=== PATIENT | male | born 1950 | race Caucasian/White ===

== ENCOUNTER 2019-07-11 22:21 | Emergency (ER) | payer MEDICARE, OTHER ==
[~2019-07-11] VITALS: Ht 188 cm; Wt 90.0 kg
[~2019-07-11 22:21] MED LIST: ASPIRIN LOW DOS81 M2 PO; LIPITOR40 MG PO; LISINOPRIL20 MG PO; SIMVASTATIN40 MG PO; ZPAK PO
[2019-07-11 23:36] LABS: HEMATOCRIT 41.7 % (39.0-50.0); HEMOGLOBIN 14.5 g/dl (14.0-18.0); IMMATURE GRANULOCYTES 0.2 % (0.0-5.0); MEAN CELL VOLUME 97.7 fL CALC (80.0-100.0); MEAN CORPUSCULAR HGB CONC 34.8 g/L CALC (32.0-36.0); NEUT# 5.23 thou/uL (1.82-7.42); RED BLOOD COUNT 4.27 mill/uL (4.70-6.10); RED CELL DISTRI WIDTH 12.9 % (11.5-15.5)
[2019-07-11 23:37] LABS: URINE BILIRUBIN - DIPSTICK NEGATIVE (NEGATIVE); URINE BLOOD DIPSTICK NEGATIVE (NEGATIVE); URINE COLOR YELLOW; URINE GLUCOSE - DIPSTICK NEGATIVE (NEGATIVE); URINE KETONE NEGATIVE (NEGATIVE); URINE LEUK ESTERASE NEGATIVE (NEGATIVE); URINE NITRITE - DIPSTICK NEGATIVE (Negative); URINE PH 5.5 (4.5-8.0); URINE PROTEIN - DIPSTICK NEGATIVE (NEG-TRACE); URINE SPECIFIC GRAVITY <=1.005; URINE UROBILINOGEN - DIPSTICK 0.2 E.U./dL (0.2)
[2019-07-11 23:46] LABS: ALBUMIN 4.4 g/dL (3.2-5.0); ALKALINE PHOSPHATASE 79 u/l (38-126); ANION GAP 13 (6-22 (CALC)); BUN 19 mg/dL (8-23); BUN/CREATININE RATIO 24 (12-20 (CALC)); CARBON DIOXIDE 24 mmol/l (22-30); CHLORIDE 105 mmol/l (95-108); CREATININE 0.8 mg/dL (0.7-1.3); GFR > 60 ML/MIN (>=60 (CALC)); GFR FOR AFR.AMER. > 60 ML/MIN (>=60 (CALC)); SGOT/AST 23 u/l (19-48); SODIUM 139 mmol/l (137-146); TOTAL PROTEIN 7.3 g/dL (6.3-8.2)
[2019-07-11 23:50] LABS: BILIRUBIN, TOTAL 0.2 mg/dL (0.0-1.4)
[2019-07-12 00:10] VITALS: BP 161/79
== END 2019-07-12 00:30 | disposition home or self-care (01) ==
LOC: ED 22:21
PROVIDERS: Family Medicine
DX: I10 Essential (primary) hypertension (principal); F17.210 Nicotine dependence, cigarettes, uncomplicated

== ENCOUNTER 2024-07-11 21:00 | Emergency (ER) | payer MEDICARE, OTHER ==
[~2024-07-11] VITALS: Ht 188 cm; Wt 75.0 kg
[2024-07-11] VITALS (12 sets, daily range): BP systolic 103–133; BP diastolic 50–69
[~2024-07-11 21:00] MED LIST changes: +ALBUTEROL SUL0.083 % IN; +AMLODIPINE BESY10 MG PO; +ANORO ELLIPTA 61 AER IN; +CRESTOR20 MG PO; +DOXYCYC MONO100 M2; +DOXYCYCLINE100 MG PO; +LISINOPRIL40 MG PO; +PREDNISONE10 MG PO
[2024-07-11] MEDS ORDERED: ALBUTEROL SULFATE 2.5 MG VIAL NEB ONE (21:15)
[2024-07-11] MEDS ORDERED: IPRATROPIUM-Albuterol 0.5MG-2.5MG/3 ML NEB ONE (21:15)
[2024-07-11 21:42] LABS: BASO% 0.3 % (0-3); EOS% 1.9 % (0-8); HEMATOCRIT 39.3 % (39.0-50.0); HEMOGLOBIN 13.1 g/dl (14.0-18.0); IMMATURE GRANULOCYTES 0.5 % (0.0-5.0); MEAN CELL VOLUME 105.6 fL CALC (80.0-100.0); MEAN CORPUSCULAR HGB 35.2 pG CALC (26.0-32.0); MEAN CORPUSCULAR HGB CONC 33.3 g/dL CAL (32.0-36.0); MONO% 13.2 % (2-13); NEUT# 7.7 thou/uL (1.82-7.42); NEUT% 70.1 % (42-76); RED BLOOD COUNT 3.72 mill/uL (4.70-6.10); RED CELL DISTRI WIDTH 13.1 % (11.5-15.5)
[2024-07-11 21:51] LABS: BILIRUBIN, TOTAL 0.3 mg/dL (0.2-1.3); CREATININE 0.7 mg/dL (0.7-1.3); TOTAL PROTEIN 6.1 g/dL (6.3-8.2)
[2024-07-11 21:52] LABS: ALBUMIN 3.6 g/dL (3.2-5.0); POTASSIUM 3.9 mmol/l (3.5-5.1)
[2024-07-11] MEDS ORDERED: predniSONE 20 MG/TAB PO ONE (22:40)
[2024-07-11] MEDS ORDERED: PREDNISONE20 MG PO (23:39)
[2024-07-12 00:05] VITALS: BP 129/69
== END 2024-07-12 00:10 | disposition home or self-care (01) ==
LOC: ED 21:00
PROVIDERS: Family Medicine
DX: J44.1 Chronic obstructive pulmonary disease with (acute) exacerbation (principal); I10 Essential (primary) hypertension; Z20.822 Contact with and (suspected) exposure to COVID-19

== ENCOUNTER 2024-10-08 15:24 | Emergency (ER) | payer MEDICARE, OTHER ==
[~2024-10-08] VITALS: Ht 188 cm; Wt 97.0 kg
[2024-10-08] VITALS (18 sets, daily range): BP systolic 71–127; BP diastolic 44–81
[~2024-10-08 15:24] MED LIST changes: +PREDNISONE20 MG PO
[2024-10-08] MEDS ORDERED: SODIUM CHLORIDE 0.9% 1,000 ML IV ONE ×4 (15:35→20:50)
[2024-10-08] MEDS ORDERED: cefTRIAXone SODIUM 2 GM in SODIUM CHLORIDE 0.9% 100 ML IV ONE (15:35)
[2024-10-08] MEDS ORDERED: AZITHROMYCIN 500 MG in SODIUM CHLORIDE 0.9% 500 ML IV ONE (15:35)
[2024-10-08 16:06] LABS: BASO% 0.1 % (0-3); HEMOGLOBIN 14.9 g/dl (14.0-18.0); IMMATURE GRANULOCYTES 0.6 % (0.0-5.0); MEAN CORPUSCULAR HGB 34.9 pG CALC (26.0-32.0); MEAN CORPUSCULAR HGB CONC 33.9 g/dL CAL (32.0-36.0); MONO% 7.5 % (2-13); NEUT# 7.23 thou/uL (1.82-7.42); NEUT% 77.8 % (42-76); RED BLOOD COUNT 4.27 mill/uL (4.70-6.10); RED CELL DISTRI WIDTH 14.6 % (11.5-15.5)
[2024-10-08 16:20] LABS: ALBUMIN 4.3 g/dL (3.2-5.0); CREATININE 1.1 mg/dL (0.7-1.3); POTASSIUM 3.7 mmol/l (3.5-5.1)
[2024-10-08 16:33] LABS: BILIRUBIN, TOTAL 0.5 mg/dL (0.2-1.3)
[2024-10-08] MEDS ORDERED: OSELTAMIVIR PHOSPHATE 75 MG/TAB CAP PO ONE (16:45)
[2024-10-08] MEDS ORDERED: ASPIRIN 81 MG/TAB PO ONE (16:50)
[2024-10-08] MEDS ORDERED: Heparin SODIUM (Porcine) 5,000 UNITS/ML SDV IV ONE (18:45)
[2024-10-08] MEDS ORDERED: Heparin SODIUM (Porcine) 500 ML IV ONE (18:50)
[2024-10-08 20:16] LABS: URINE BLOOD DIPSTICK Negative (NEGATIVE); URINE GLUCOSE - DIPSTICK Negative (NEGATIVE); URINE KETONE 15 mg/dL (NEGATIVE); URINE LEUK ESTERASE Negative (NEGATIVE); URINE NITRITE - DIPSTICK Negative (Negative); URINE PROTEIN - DIPSTICK 100 mg/dL (NEG-TRACE); URINE SPECIFIC GRAVITY 1.015; URINE UROBILINOGEN - DIPSTICK 0.2 E.U./dL (0.2)
[2024-10-08 20:18] LABS: URINE COLOR Dark yellow
[2024-10-08 20:22] LABS: URINE MUCUS MODERATE hpf (NONE-FEW)
[2024-10-08 20:23] LABS: URINE HYALINE CAST MODERATE lpf (NONE-RARE)
== END 2024-10-08 22:00 | disposition short-term general hospital (02) ==
LOC: ED 15:24
PROVIDERS: Family Medicine
PROC: 05HM33Z Insertion of Infusion Device into Right Internal Jugular Vein, Percutaneous Approach (ICD-10-PCS; principal; 2024-10-08)
DX: I21.4 Non-ST elevation (NSTEMI) myocardial infarction (principal); J10.1 Influenza due to other identified influenza virus with other respiratory manifestations; I95.9 Hypotension, unspecified; I10 Essential (primary) hypertension; J44.9 Chronic obstructive pulmonary disease, unspecified; Z20.822 Contact with and (suspected) exposure to COVID-19
CPT/HCPCS: J0456; J0696; J1644; Q9967

== ENCOUNTER 2024-10-21 13:17 | Inpatient (IN) | payer MEDICARE, OTHER ==
[~2024-10-21] VITALS: Ht 188 cm; Wt 81.8 kg
[2024-10-21] VITALS (10 sets, daily range): BP systolic 111–130; BP diastolic 65–74
[2024-10-21] MEDS ORDERED: methylPREDNISolone SODIUM SUCC 125 MG/2 ML SDV IV ONE (13:25)
[2024-10-21] MEDS ORDERED: IPRATROPIUM-Albuterol 0.5MG-2.5MG/3 ML NEB ONE (13:25)
[2024-10-21 13:44] LABS: EOS% 0.1 % (0-8); IMMATURE GRANULOCYTES 1.4 % (0.0-5.0); LYMPH% 17.3 % (15-41); MEAN CELL VOLUME 107.9 fL CALC (80.0-100.0); MEAN CORPUSCULAR HGB CONC 32.5 g/dL CAL (32.0-36.0); MONO% 10.6 % (2-13); NEUT# 6.43 thou/uL (1.82-7.42); NEUT% 70.6 % (42-76); RED BLOOD COUNT 3.31 mill/uL (4.70-6.10); RED CELL DISTRI WIDTH 14.6 % (11.5-15.5)
[2024-10-21 13:45] LABS: HEMATOCRIT 35.7 % (39.0-50.0); HEMOGLOBIN 11.6 g/dl (14.0-18.0)
[2024-10-21 14:04] LABS: BILIRUBIN, TOTAL 0.6 mg/dL (0.2-1.3); CREATININE 0.7 mg/dL (0.7-1.3); POTASSIUM 3.8 mmol/l (3.5-5.1)
[2024-10-21 14:11] LABS: PROTHROMBIN TIME 10.3 SECONDS (9.0-12.5)
[2024-10-21 14:14] LABS: ALBUMIN 3.2 g/dL (3.2-5.0)
[2024-10-21] MEDS ORDERED: AZITHROMYCIN 500 MG in SODIUM CHLORIDE 0.9% 500 ML IV ONE (15:35)
[2024-10-21] MEDS ORDERED: ACETAMINOPHEN 325 MG/TAB PO PRN (16:10)
[2024-10-21] MEDS ORDERED: MAGNESIUM HYDROXIDE 30 ML UDC PO PRN (16:10)
[2024-10-21] MEDS ORDERED: TOPROL XL25 MG PO (16:14)
[2024-10-21] MEDS ORDERED: IPRATROPIUM-Albuterol 0.5MG-2.5MG/3 ML NEB PRN (16:15)
[2024-10-21] MEDS ORDERED: TRELEGY ELLIPTA1 AER IN (16:47)
[2024-10-21] MEDS ORDERED: IS-ZC 50 50 MG1 TAB PO (16:49)
[2024-10-21] MEDS ORDERED: CRESTOR10 MG PO (16:49)
[2024-10-21] MEDS ORDERED: COQ-1050 MG PO (16:50)
[2024-10-21] MEDS ORDERED: [UNRECOGNIZED DRUG - OTHER] PO (16:51)
[2024-10-21] MEDS ORDERED: methylPREDNISolone Sod Succ 40 MG/ML SDV IV SCH (21:00)
[2024-10-21] MEDS ORDERED: ENOXAPARIN SODIUM 40 MG/0.4 ML SYR SC SCH (21:00)
[2024-10-22 00:21] VITALS: BP 118/73
[2024-10-22 03:49] VITALS: BP 135/82
[2024-10-22 05:31] LABS: BASO% 0.1 % (0-3); HEMATOCRIT 33.2 % (39.0-50.0); HEMOGLOBIN 10.9 g/dl (14.0-18.0); IMMATURE GRANULOCYTES 1.1 % (0.0-5.0); MEAN CELL VOLUME 105.7 fL CALC (80.0-100.0); MEAN CORPUSCULAR HGB 34.7 pG CALC (26.0-32.0); MEAN CORPUSCULAR HGB CONC 32.8 g/dL CAL (32.0-36.0); MONO% 1.2 % (2-13); NEUT# 7.5 thou/uL (1.82-7.42); RED BLOOD COUNT 3.14 mill/uL (4.70-6.10); RED CELL DISTRI WIDTH 14.4 % (11.5-15.5)
[2024-10-22 05:58] LABS: LYMPH% 6.6 % (15-41)
[2024-10-22 06:11] LABS: ALBUMIN 2.6 g/dL (3.2-5.0); BILIRUBIN, TOTAL 0.4 mg/dL (0.2-1.3); CREATININE 0.6 mg/dL (0.7-1.3); MAGNESIUM 1.9 mg/dL (1.6-2.3); TOTAL PROTEIN 5.1 g/dL (6.3-8.2)
[2024-10-22 06:12] LABS: POTASSIUM 4.7 mmol/l (3.5-5.1)
[2024-10-22 06:45] VITALS: BP 138/67
[2024-10-22] MEDS ORDERED: METOPROLOL SUCCINATE 25 MG/TAB-TOPROL XL PO SCH (09:00)
[2024-10-22] MEDS ORDERED: ASPIRIN EC 81 MG/TAB PO SCH (09:00)
[2024-10-22] MEDS ORDERED: amLODIPine BESYLATE 5 MG/TAB PO SCH (09:00)
[2024-10-22] MEDS ORDERED: LISINOPRIL 20 MG/TAB PO SCH (09:00)
[2024-10-22] MEDS ORDERED: VANCOMYCIN HCL 1 GM in SODIUM CHLORIDE 0.9% 250 ML IV SCH (10:00)
[2024-10-22] MEDS ORDERED: PIPERACILLIN Sodium-Tazobactam 4.5 GM in SODIUM CHLORIDE 0.9% 100 ML IV SCH (12:00)
[2024-10-22] MEDS ORDERED: AZITHROMYCIN 500 MG in SODIUM CHLORIDE 0.9% 250 ML IV SCH (15:00)
[2024-10-22 16:09] VITALS: BP 124/74
[2024-10-22 19:40] VITALS: BP 131/73
[2024-10-22 23:48] VITALS: BP 122/63
[2024-10-22] MEDS ORDERED: MELATONIN 3 MG/TAB PO PRN (23:50)
[2024-10-23 06:17] LABS: BASO% 0.1 % (0-3); HEMATOCRIT 30.1 % (39.0-50.0); IMMATURE GRANULOCYTES 1.4 % (0.0-5.0); MEAN CELL VOLUME 105.6 fL CALC (80.0-100.0); MEAN CORPUSCULAR HGB 35.1 pG CALC (26.0-32.0); MEAN CORPUSCULAR HGB CONC 33.2 g/dL CAL (32.0-36.0); MONO% 1.9 % (2-13); NEUT# 8.49 thou/uL (1.82-7.42); NEUT% 87.6 % (42-76); RED BLOOD COUNT 2.85 mill/uL (4.70-6.10); RED CELL DISTRI WIDTH 14.3 % (11.5-15.5)
[2024-10-23 06:20] LABS: ALBUMIN 2.6 g/dL (3.2-5.0); BILIRUBIN, TOTAL 0.5 mg/dL (0.2-1.3); CREATININE 0.7 mg/dL (0.7-1.3); MAGNESIUM 1.9 mg/dL (1.6-2.3); POTASSIUM 4.7 mmol/l (3.5-5.1); TOTAL PROTEIN 4.9 g/dL (6.3-8.2)
[2024-10-23 07:00] VITALS: BP 136/73
[2024-10-23 16:00] VITALS: BP 143/84
[2024-10-23 18:28] VITALS: BP 137/67
[2024-10-23 23:37] VITALS: BP 143/79
[2024-10-24] MEDS ORDERED: VANCOMYCIN HCL 1 GM in SODIUM CHLORIDE 0.9% 250 ML IV SCH (09:00)
[2024-10-24] MEDS ORDERED: methylPREDNISolone Sod Succ 40 MG/ML SDV IV SCH (09:00)
[2024-10-24 11:00] VITALS: BP 120/71
[2024-10-24 16:21] VITALS: BP 137/75
[2024-10-24 18:25] VITALS: BP 112/61
[2024-10-24 18:55] VITALS: BP 112/61
[2024-10-25 00:58] VITALS: BP 105/55
[2024-10-25 04:07] VITALS: BP 114/62
[2024-10-25 04:30] VITALS: BP 114/62
[2024-10-25 06:06] LABS: BASO% 0.1 % (0-3); EOS% 0.2 % (0-8); HEMATOCRIT 36.3 % (39.0-50.0); HEMOGLOBIN 12.1 g/dl (14.0-18.0); IMMATURE GRANULOCYTES 1.3 % (0.0-5.0); LYMPH% 25.1 % (15-41); MEAN CELL VOLUME 105.8 fL CALC (80.0-100.0); MEAN CORPUSCULAR HGB 35.3 pG CALC (26.0-32.0); MEAN CORPUSCULAR HGB CONC 33.3 g/dL CAL (32.0-36.0); MONO% 6.3 % (2-13); NEUT# 6.87 thou/uL (1.82-7.42); RED BLOOD COUNT 3.43 mill/uL (4.70-6.10); RED CELL DISTRI WIDTH 14.5 % (11.5-15.5)
[2024-10-25 06:07] VITALS: BP 114/62
[2024-10-25 06:19] LABS: ALBUMIN 2.9 g/dL (3.2-5.0); BILIRUBIN, TOTAL 0.7 mg/dL (0.2-1.3); CREATININE 0.8 mg/dL (0.7-1.3); MAGNESIUM 2.2 mg/dL (1.6-2.3); POTASSIUM 4.4 mmol/l (3.5-5.1); TOTAL PROTEIN 5.6 g/dL (6.3-8.2)
[2024-10-25] MEDS ORDERED: PREDNISONE10 MG PO (09:50)
[2024-10-25] MEDS ORDERED: OMNICEF300 MG PO (09:51)
[2024-10-25 10:41] VITALS: BP 107/59
== END 2024-10-25 11:52 | DRG 193 ==
LOC: ED 13:17 → ED-I 16:01 → ED 16:26 → MS2 16:27
PROVIDERS: Nurse Practitioner; Nurse Practitioner Family; ADMIT Internal Medicine; ATTEND Internal Medicine
DX: J18.9 Pneumonia, unspecified organism (principal); J96.21 Acute and chronic respiratory failure with hypoxia; J96.22 Acute and chronic respiratory failure with hypercapnia; J44.0 Chronic obstructive pulmonary disease with (acute) lower respiratory infection; J44.1 Chronic obstructive pulmonary disease with (acute) exacerbation; J43.9 Emphysema, unspecified; I10 Essential (primary) hypertension; E78.5 Hyperlipidemia, unspecified; F17.210 Nicotine dependence, cigarettes, uncomplicated; Z99.81 Dependence on supplemental oxygen
CPT/HCPCS: J0456; J0696; J1650; J2543; J3370; Q9967